=== PATIENT | female | born 1955 | race Caucasian/White ===

== ENCOUNTER 2020-05-11 06:28 | Observation (INO) ==
[2020-05-11] MEDS ORDERED: Naloxone 0.4 MG/ML INJ IVP PRN ×2 (11:37→14:36)
[2020-05-11 12:34] LABS: Calcium 7.8 mg/dL (8.6-10.3); Potassium 3.7 mEq/L (3.5-5.1)
[2020-05-11] MEDS ORDERED: *HR* Propofol 200 MG/20 ML VIAL IVP ONE (13:16)
[2020-05-11] MEDS ORDERED: *HR* FentaNYL (PF) 100 MCG/2 ML VIAL ONE (13:16)
[2020-05-11] MEDS ORDERED: Lidocaine -MPF 2% 2 ML VIAL ONE (13:17)
[2020-05-11] MEDS ORDERED: Dexamethasone 4 MG/ML VIAL ONE (13:17)
[2020-05-11] MEDS ORDERED: Ondansetron 4 MG/2 ML VIAL ONE (13:17)
[2020-05-11] MEDS ORDERED: Acetaminophen IV 1,000 MG/100 ML INFUS..BTL ONE (13:19)
[2020-05-11] MEDS ORDERED: Famotidine 20 MG/2 ML VIAL ONE (13:19)
[2020-05-11] MEDS ORDERED: Ondansetron 4 MG/2 ML VIAL IVP PRN ×2 (13:51→14:36)
[2020-05-11] MEDS ORDERED: *HR* Heparin 5,000 UNIT/ML VIAL SQ SCH (14:00)
[2020-05-11] MEDS ORDERED: *HR* OxyCODONE Immed Rel 5 MG TABLET PO PRN (14:36)
[2020-05-11] MEDS ORDERED: *HR* OxyCODONE/APAP 5/325 TABLET PO PRN (14:36)
[2020-05-11] MEDS: 0.9 % Sodium Chloride 1,000 ML IVC SCH (17:52)
[2020-05-11] MEDS: *HR* Heparin 5,000 UNIT/ML VIAL SQ SCH (21:47)
[2020-05-12 02:23] LABS: Basophils % 0.1 %; Hematocrit 28.8 % (35.3-44.9); Lymphocytes % 6.8 %; Red Cell Distribution Width 12.6 % (11.5-14.5)
[2020-05-12] MEDS: 0.9 % Sodium Chloride 1,000 ML IVC SCH (02:23)
[2020-05-12 02:25] LABS: Hemoglobin 9.2 g/dL (11.5-15.4); Immature Platelets 13.1 % (1.1-6.1); Lymphocytes # 0.9 K/mcL (0.6-4.6); Mean Corpuscular HGB Conc 31.9 g/dL (31.6-35.5); Mean Corpuscular Hemoglobin 31.6 pg (28.0-33.3); Monocytes # 0.6 K/mcL (0.0-1.3); Monocytes % 4.5 %; Red Blood Count 2.91 M/mcL (3.82-4.97); Segmented Neutrophils % 87.6 %; White Blood Count 13.6 K/mcL (4.3-11.1)
[2020-05-12 02:39] LABS: Calcium 7.8 mg/dL (8.6-10.3); Potassium 3.5 mEq/L (3.5-5.1)
[2020-05-12 02:52] LABS: Neutrophils # 11.9 K/mcL (1.6-8.9); Platelet Count 98 K/mcL (140-400)
[2020-05-12 02:53] LABS: Platelet Estimate Slight Decrease (Normal)
[2020-05-12] MEDS: *HR* Heparin 5,000 UNIT/ML VIAL SQ SCH ×3 (05:24→20:36)
[2020-05-12] MEDS ORDERED: cefTRIAXone 1,000 MG in Water for inj. (sterile) 10 ML IVP SCH (09:00)
[2020-05-12] MEDS ORDERED: Fenofibrate 54 MG TABLET PO SCH (09:00)
[2020-05-12] MEDS: Metoprolol XL (24 HR) Succ 50 MG TAB.ER.24H PO SCH (09:53)
[2020-05-12] MEDS: Multivit/Ca/Min/Fe/FA 1 TAB TABLET PO SCH (09:54)
[2020-05-12] MEDS: Aspirin Enteric Coated 81 MG Tablet PO SCH (09:54)
[2020-05-12] MEDS: Loratadine 10 MG TABLET PO SCH (09:54)
[2020-05-12] MEDS: Fluticasone Propionate Nasal 50 MCG/SPRAY BOTTLE NS SCH (09:56)
[2020-05-12 12:45] LABS: Complement C3 130 mg/dL (87-200)
[2020-05-12] MEDS: Acetaminophen 325 MG TABLET PO PRN (20:36)
[2020-05-13 05:16] LABS: Basophils # 0.1 K/mcL (0.0-0.2); Basophils % 0.3 %; Eosinophils % 0.1 %; Hematocrit 28.7 % (35.3-44.9); Hemoglobin 9.2 g/dL (11.5-15.4); Immature Granulocytes % 2.6 % (0-4); Lymphocytes # 1.4 K/mcL (0.6-4.6); Lymphocytes % 8.2 %; Mean Corpuscular HGB Conc 32.1 g/dL (31.6-35.5); Mean Corpuscular Volume 96.6 fL (83.0-100.0); Mean Platelet Volume 12.3 fL (9.4-12.4); Monocytes # 1.1 K/mcL (0.0-1.3); Neutrophils # 14.5 K/mcL (1.6-8.9); Nucleated Red Blood Cells 0.1 /100 WBC (0); Platelet Count 118 K/mcL (140-400); Red Blood Count 2.97 M/mcL (3.82-4.97); Red Cell Distribution Width 12.7 % (11.5-14.5); Segmented Neutrophils % 82.8 %; White Blood Count 17.5 K/mcL (4.3-11.1)
[2020-05-13 05:33] LABS: VBG Ionized Calcium 1.19 mmol/L (1.15-1.35)
[2020-05-13] MEDS: Acetaminophen 325 MG TABLET PO PRN ×3 (05:37→22:55)
[2020-05-13] MEDS: *HR* Heparin 5,000 UNIT/ML VIAL SQ SCH ×3 (05:38→22:50)
[2020-05-13 05:41] LABS: % Iron Saturation 32 % (15-50); Albumin 3.2 g/dL (3.5-5.7); BUN/Creatinine Ratio 45 (6-26); Blood Urea Nitrogen 51 mg/dL (8-23); Carbon Dioxide 20 mEq/L (23-29); Chloride 112 mEq/L (98-107); Chol/HDL Ratio 9.5 (0-4.9); Cholesterol 143 mg/dL (< 200); Glucose 102 mg/dL (70-105); HDL Cholesterol 15 mg/dL (40-59); Iron 109 mcg/dL (50-170); Magnesium 1.8 mg/dL (1.6-2.6); Osmolality,Calculated 306 (280-300); Phosphorous 2.3 mg/dL (2.7-4.5); Potassium 3.4 mEq/L (3.5-5.1); Sodium 141 mEq/L (136-145); Transferrin 243 mg/dL (203-362); Triglycerides 453 mg/dL (< 150); eGFR For African Americans 58 (> 60); eGFR For Non-African Americans 48 (> 60)
[2020-05-13 05:57] LABS: Ferritin 242 ng/mL (10-120)
[2020-05-13 06:31] LABS: Platelet Estimate Slight Decrease (Normal)
[2020-05-13] MEDS: cefTRIAXone 2,000 MG in Water for inj. (sterile) 20 ML IVP SCH (09:00)
[2020-05-13] MEDS: Multivit/Ca/Min/Fe/FA 1 TAB TABLET PO SCH (09:01)
[2020-05-13] MEDS: Loratadine 10 MG TABLET PO SCH (09:01)
[2020-05-13] MEDS: Aspirin Enteric Coated 81 MG Tablet PO SCH (09:01)
[2020-05-13] MEDS: Metoprolol XL (24 HR) Succ 50 MG TAB.ER.24H PO SCH (09:01)
[2020-05-13] MEDS: Fluticasone Propionate Nasal 50 MCG/SPRAY BOTTLE NS SCH (09:21)
[2020-05-13] MEDS ORDERED: Albuterol 2.5 MG/3 ML NEBULIZER IH PRN (09:59)
[2020-05-13] MEDS ORDERED: Potassium Phosphate 44 MEQ in 0.9 % Sodium Chloride 250 ML IVPB ONE (13:20)
[2020-05-13] MEDS ORDERED: Ergocalciferol (VIT D2) 50,000 UNIT (1.25MG) CAP PO SCH (14:30)
[2020-05-14 04:44] LABS: Basophils # 0.1 K/mcL (0.0-0.2); Basophils % 0.9 %; Eosinophils # 0.1 K/mcL (0.0-0.6); Eosinophils % 1.2 %; Hematocrit 28.9 % (35.3-44.9); Hemoglobin 9.4 g/dL (11.5-15.4); Immature Granulocytes % 9.2 % (0-4); Lymphocytes # 1.6 K/mcL (0.6-4.6); Lymphocytes % 13.9 %; Mean Corpuscular HGB Conc 32.5 g/dL (31.6-35.5); Mean Corpuscular Hemoglobin 31.4 pg (28.0-33.3); Mean Corpuscular Volume 96.7 fL (83.0-100.0); Mean Platelet Volume 12.2 fL (9.4-12.4); Monocytes # 1.3 K/mcL (0.0-1.3); Monocytes % 10.7 %; Nucleated Red Blood Cells 0.3 /100 WBC (0); Platelet Count 144 K/mcL (140-400); Red Blood Count 2.99 M/mcL (3.82-4.97); Red Cell Distribution Width 12.9 % (11.5-14.5); Segmented Neutrophils % 64.1 %; White Blood Count 11.8 K/mcL (4.3-11.1)
[2020-05-14 05:01] LABS: Neutrophils # 7.6 K/mcL (1.6-8.9)
[2020-05-14] MEDS: *HR* Heparin 5,000 UNIT/ML VIAL SQ SCH (05:03)
[2020-05-14 05:04] LABS: BUN/Creatinine Ratio 38 (6-26); Blood Urea Nitrogen 31 mg/dL (8-23); Calcium 8.8 mg/dL (8.6-10.3); Carbon Dioxide 23 mEq/L (23-29); Chloride 111 mEq/L (98-107); Glucose 92 mg/dL (70-105); Osmolality,Calculated 300 (280-300); Potassium 3.4 mEq/L (3.5-5.1); Sodium 142 mEq/L (136-145); eGFR For African Americans > 60 (> 60); eGFR For Non-African Americans > 60 (> 60)
[2020-05-14] MEDS: Acetaminophen 325 MG TABLET PO PRN ×2 (05:11→13:32)
[2020-05-14 05:34] LABS: Platelet Estimate Normal (Normal)
[2020-05-14] MEDS: Multivit/Ca/Min/Fe/FA 1 TAB TABLET PO SCH (10:25)
[2020-05-14] MEDS: Metoprolol XL (24 HR) Succ 50 MG TAB.ER.24H PO SCH (10:25)
[2020-05-14] MEDS: Loratadine 10 MG TABLET PO SCH (10:25)
[2020-05-14] MEDS: Aspirin Enteric Coated 81 MG Tablet PO SCH (10:25)
[2020-05-14] MEDS: cefTRIAXone 2,000 MG in Water for inj. (sterile) 20 ML IVP SCH (10:26)
[2020-05-14] MEDS: Fluticasone Propionate Nasal 50 MCG/SPRAY BOTTLE NS SCH (10:27)
[2020-05-14 13:32] VITALS: BP 150/83
[2020-05-15 04:45] LABS: Lambda Qnt Free Light Chains 15.25 mg/L (5.71-26.30)
[2020-05-15 07:21] LABS: Kappa Qnt Free Light Chains 20.96 mg/L (3.30-19.40)
[2020-05-15 10:56] LABS: ANA IgG by ELISA NONE DETECTED (None Detected)
[2020-05-16 23:20] LABS: Alpha 2 Globulin (PEP) 0.71 g/dL (0.48-1.05); Beta Globulin (PEP) 0.79 g/dL (0.48-1.10)
[2020-05-17 09:26] LABS: Immunoglobulin A 179 mg/dL (68-408); Immunoglobulin G 600 mg/dL (768-1632); Immunoglobulin M 24 mg/dL (35-263)
[2020-05-17 09:27] LABS: IFE Reflexed IFE Done
== END 2020-05-14 14:00 | disposition home or self-care (01) ==
LOC: 3ANU
PROVIDERS: ADMIT Internal Medicine; ATTEND Internal Medicine